=== PATIENT | male | born 1980 | race Caucasian/White ===

== ENCOUNTER 2017-11-12 12:44 | Emergency (ER) | payer SELFPAY ==
[~2017-11-12] VITALS: Ht 175.3 cm; Wt 89.3 kg
[2017-11-12 12:51] VITALS: BP 157/96; Ht 175.3 cm; Wt 89.3 kg
== END 2017-11-12 13:33 | disposition home or self-care (01) ==
LOC: ED 12:44
DX: L30.4 Erythema intertrigo (principal)